=== PATIENT | female | born 1995 | race Caucasian/White ===

== ENCOUNTER → 2020-12-26 | Outpatient (CLI) | payer BC, OTHER ==
[~2020-12-26] MED LIST: AMOXICILLIN500 M1 PO; DOCUSATE SODIU250 MG PO; HYDROCODONE-AC1 EACH PO; IBUPROFEN600 MG PO; LABETALOL HCL200 MG PO; PRENATA CHEWAB1 EACH PO; TRANDATE 200 M200 MG PO
[2020-12-26 18:36] LABS: HEMOGLOBIN 11.6 gm/dl (12.3-15.3); RED BLOOD COUNT 4.4 M/UL (4.00-5.10); WHITE BLOOD COUNT 10.3 K/UL (4.5-11.0)
[2020-12-26 18:55] LABS: BUN/CREATININE RATIO 13 (0-10)
== END ==
LOC: LAB 17:49
PROVIDERS: Advanced Practice Midwife
DX: O14.90 Unspecified pre-eclampsia, unspecified trimester (principal)
CPT/HCPCS: 80053; 80076; 83615; 84550; 85025; 85379; 85384; 85610; 85730

== ENCOUNTER 2021-01-18 13:52 | Outpatient (CLI) | payer BC, OTHER ==
[2021-01-18 16:10] LABS: HEMOGLOBIN 11.4 gm/dl (12.3-15.3); RED BLOOD COUNT 4.43 M/UL (4.00-5.10); WHITE BLOOD COUNT 4.4 K/UL (4.5-11.0)
== END 2021-01-18 17:28 | disposition home or self-care (01) ==
LOC: GENOP 13:52
PROVIDERS: Obstetrics & Gynecology
DX: Z36.83 Encounter for fetal screening for congenital cardiac abnormalities (principal)
CPT/HCPCS: 59025; 81001; 82247; 82248; 82565; 82570; 84156; 84450; 84460; 84550; 85025; 85379; 85384; 85610; 85730

== ENCOUNTER 2021-01-22 11:04 | Outpatient (CLI) | payer BC, OTHER | END 2021-01-22 14:10 | disposition home or self-care (01) | LOC: GENOP 11:04 | DX: Z34.93 Encounter for supervision of normal pregnancy, unspecified, third trimester (principal); Z88.5 Allergy status to narcotic agent; Z3A.37 37 weeks gestation of pregnancy | CPT/HCPCS: 59025 ==

== ENCOUNTER 2021-01-27 16:10 | Inpatient (IN) | payer BC, OTHER ==
[~2021-01-27] VITALS: Ht 167.6 cm; Wt 163.3 kg
[2021-01-27] MEDS ORDERED: PRENATA CHEWAB1 EACH PO (17:45)
[2021-01-27] MEDS ORDERED: AMOXICILLIN500 M1 PO (17:46)
[2021-01-27] MEDS ORDERED: TRANDATE 200 M200 MG PO (17:46)
[2021-01-27 17:49] LABS: HEMOGLOBIN 11.8 gm/dl (12.3-15.3); RED BLOOD COUNT 4.55 M/UL (4.00-5.10); WHITE BLOOD COUNT 7.4 K/UL (4.5-11.0)
[2021-01-29 05:12] LABS: HEMOGLOBIN 10.2 gm/dl (12.3-15.3)
[2021-01-29] MEDS ORDERED: DOCUSATE SODIU250 MG PO (07:57)
[2021-01-29] MEDS ORDERED: IBUPROFEN600 MG PO (07:57)
[2021-01-29] MEDS ORDERED: HYDROCODONE-AC1 EACH PO (07:57)
[2021-01-30] MEDS ORDERED: LABETALOL HCL200 MG PO (16:01)
== END 2021-01-30 18:02 | disposition home or self-care (01) | DRG 786 ==
LOC: GENOP 16:10 → OB 17:02
PROVIDERS: Obstetrics & Gynecology; ADMIT Obstetrics & Gynecology
PROC: 4A0HXCZ Measurement of Products of Conception, Cardiac Rate, External Approach (ICD-10-PCS; 2021-01-27)
PROC: 10D00Z1 Extraction of Products of Conception, Low, Open Approach (ICD-10-PCS; principal; 2021-01-28 20:42)
DX: O13.4 Gestational [pregnancy-induced] hypertension without significant proteinuria, complicating childbirth (principal); U07.1 COVID-19; O98.52 Other viral diseases complicating childbirth; O76 Abnormality in fetal heart rate and rhythm complicating labor and delivery; O99.214 Obesity complicating childbirth; E66.01 Morbid (severe) obesity due to excess calories; O99.284 Endocrine, nutritional and metabolic diseases complicating childbirth; E28.2 Polycystic ovarian syndrome; Z3A.38 38 weeks gestation of pregnancy; Z37.0 Single live birth; Z90.89 Acquired absence of other organs; Z98.890 Other specified postprocedural states; Z83.3 Family history of diabetes mellitus; Z82.49 Family history of ischemic heart disease and other diseases of the circulatory system
CPT/HCPCS: 36415; 81001; 82800; 85014; 85018; 85025; 90715; C9113; J0595; J0690; J1650; J2274; J2590; J7030; J7120